=== PATIENT | female | born 1970 | race Asian ===

== ENCOUNTER 2017-07-07 12:47 | Emergency (ER) | payer OTHER ==
[2017-07-07 13:09] VITALS: BP 108/73
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
== END 2017-07-07 14:37 | disposition home or self-care (01) ==
LOC: UCEAST 12:47
DX: S16.1XXA Strain of muscle, fascia and tendon at neck level, initial encounter (principal); V43.52XA Car driver injured in collision with other type car in traffic accident, initial encounter; Y92.9 Unspecified place or not applicable; J45.909 Unspecified asthma, uncomplicated; M50.322 Other cervical disc degeneration at C5-C6 level
CPT/HCPCS: 72020; 72050; 99212; G0463

== ENCOUNTER 2019-06-05 11:44 | Emergency (ER) | payer OTHER ==
[2019-06-05 11:52] VITALS: BP 121/53
[2019-06-05] MEDS ORDERED: Albuterol/Ipratropium NEB.SOL* Albuterol 2.5 MG/Ipratropium 0.5 MG 3 ML INH ONE (12:03)
--- NOTE | 2019-06-05 12:03 | UC ---
Respiratory Complaint HPI - HPI Summary HPI Summary: 49 yo female presents with sinus pain/pressure/congestion, loss of voice, and dry cough for the last 4 days. She has a history of asthma and has been using her inhalers at home with mild short term relief. She has felt feverish, but has not taken her temperature. Has not been taking anything OTC for her symptoms. Denies sore throat, SOB, chest pain, n/v. - History of Current Complaint Chief Complaint: UCRespiratory Stated Complaint: RESP COMPLAINT Time Seen by Provider: 06/05/19 11:57 Hx Obtained From: Patient Hx Last Menstrual Period: 07/03/17 Onset/Duration: Gradual Onset Severity Initially: Moderate Severity Currently: Moderate Pain Intensity: 5 Pain Scale Used: 0-10 Numeric Character: Cough: Nonproductive - Allergies/Home Medications Allergies/Adverse Reactions: Allergies Allergy/AdvReac Type Severity Reaction Status Date / Time eggplant Allergy Swelling Uncoded 06/05/19 11:51 Of Face,Lips,& Throat PMH/Surg Hx/FS Hx/Imm Hx Respiratory History: Asthma - Surgical History Surgical History: None - Family History Known Family History: Positive: None - Social History Lives: With Family Alcohol Use: Rare Substance Use Type: None Smoking Status (MU): Never Smoked Tobacco Review of Systems All Other Systems Reviewed And Are Negative: Yes Constitutional: Positive: Fever - resolved Skin: Positive: Negative Eyes: Positive: Negative ENT: Positive: Nasal Discharge, Sinus Congestion, Sinus Pain/Tenderness Respiratory: Positive: Cough Cardiovascular: Positive: Negative Gastrointestinal: Positive: Negative Neurovascular: Positive: Negative Neurological: Positive: Negative Psychological: Positive: Negative Physical Exam - Summary Physical Exam Summary: GENERAL: NAD. WDWN. No pain distress. SKIN: No rashes, sores, lesions, or open wounds. HEENT: Head: AT/NC Eyes: EOM intact. Conjunctiva clear without inflammation or discharge. Ears: Hearing grossly normal. TMs intact, no bulging, erythema, or edema. Nose: Nasal mucosa mildly swollen and erythematous with clear discharge. TTP maxillary > frontal sinus. Positive post nasal drip Throat: Posterior oropharynx without exudates, erythema, or tonsillar enlargement. Uvula midline. NECK: Supple. Nontender. No lymphadenopathy. CHEST: CTAB. No r/r/w. No accessory muscle use. Breathing comfortably and in no distress. CV: RRR. Without m/r/g. Pulses intact. NEURO: Alert. PSYCH: Age appropriate behavior. Triage Information Reviewed: Yes Vital Signs: Initial Vital Signs Temp 98.6 F 06/05/19 11:49 Pulse 102 06/05/19 11:49 Resp 20 06/05/19 11:49 BP 121/53 06/05/19 11:49 Pulse Ox 99 06/05/19 11:49 Vital Signs Reviewed: Yes Respiratory Course/Dx - Course Course Of Treatment: CXR: IMPRESSION: NO EVIDENCE FOR ACTIVE CARDIOPULMONARY DISEASE. Duoneb: good improvement s/p with less coughing and lungs feel less tight. Suspect sinusitis with bronchitis/asthma exacerbation. Will rx for augmentin and tessalon. Advised to continue with at home inhalers and f/u if no improvement in 2-3 days - Differential Dx/Diagnosis Provider Diagnosis: Sinusitis, Asthma exacerbation Discharge - Sign-Out/Discharge Documenting (check all that apply): Patient Departure All imaging exams completed and their final reports reviewed: Yes - Discharge Plan Condition: Stable Disposition: HOME Prescriptions: Amoxicillin/Clavulanate TAB* [Augmentin TAB 875*] 875 mg PO BID #14 tab Benzonatate CAP* [Tessalon 100 MG CAP*] 100 mg PO TID PRN #15 cap PRN Reason: Cough Patient Education Materials: Asthma (DC), Sinusitis (ED) Referrals: Ana Johnson MD [Primary Care Provider] - Additional Instructions: If you develop a fever, shortness of breath, chest pain, new or worsening symptoms - please call your PCP or go to the ED immediately. Continue using your inhalers as directed - Billing Disposition and Condition Condition: STABLE Disposition: Home - Attestation Statements Provider Attestation: I was available for consult. This patient was seen by the CONNOR. The patient was not presented to, seen by, or examined by me. -Severiano
== END 2019-06-05 12:49 | disposition home or self-care (01) ==
LOC: UCEAST 11:44
DX: J32.9 Chronic sinusitis, unspecified (principal); J45.901 Unspecified asthma with (acute) exacerbation
CPT/HCPCS: 71046; 99211; A9270-GY; G0463

== ENCOUNTER 2019-11-02 13:35 | Emergency (ER) | payer OTHER ==
[2019-11-02 13:44] VITALS: BP 113/66
--- NOTE | 2019-11-02 14:01 | UC ---
Throat Pain/Nasal Evelio HPI - HPI Summary HPI Summary: 49 yo female presents with URI symptoms. Pt tells me that she has a history of asthma. Over the last 1-1.5 weeks has had sinus pain/pressure/congestion, post nasal drip, and worsening cough. She has been using her inhalers more often, which do help. Noticing pain in her upper teeth recently. Denies rash, SOB, chest pain, abdominal pain, n/v. - History of Current Complaint Chief Complaint: UCGeneralIllness Stated Complaint: CONGESTION, SORE THROAT Time Seen by Provider: 11/02/19 14:01 Hx Obtained From: Patient Hx Last Menstrual Period: 10/25 Onset/Duration: Gradual Onset Severity: Moderate Pain Intensity: 7 Pain Scale Used: 0-10 Numeric - Allergies/Home Medications Allergies/Adverse Reactions: Allergies Allergy/AdvReac Type Severity Reaction Status Date / Time eggplant Allergy Swelling Uncoded 11/02/19 13:44 Of Face,Lips,& Throat PMH/Surg Hx/FS Hx/Imm Hx Respiratory History: Asthma - Surgical History Surgical History: None - Family History Known Family History: Positive: None - Social History Lives: With Family Alcohol Use: Rare Substance Use Type: None Smoking Status (MU): Never Smoked Tobacco Review of Systems All Other Systems Reviewed And Are Negative: No Constitutional: Positive: Negative Skin: Positive: Negative Eyes: Positive: Negative ENT: Positive: Nasal Discharge, Sinus Congestion, Sinus Pain/Tenderness Respiratory: Positive: Cough Cardiovascular: Positive: Negative Gastrointestinal: Positive: Negative Neurovascular: Positive: Negative Neurological: Positive: Negative Psychological: Positive: Negative Physical Exam - Summary Physical Exam Summary: GENERAL: NAD. WDWN. No pain distress. SKIN: No rashes, sores, lesions, or open wounds. HEENT: Head: AT/NC Eyes: Conjunctiva clear without inflammation or discharge. Ears: Hearing grossly normal. TMs intact, no bulging, erythema, or edema. Nose: Nasal mucosa pink and moist. TTP maxillary > frontal sinus. Positive post nasal drip Throat: Posterior oropharynx without exudates, erythema, or tonsillar enlargement. Uvula midline. NECK: Supple. Nontender. No lymphadenopathy. CHEST: Mild wheezing throughout. No r/r. No accessory muscle use. Breathing comfortably and in no distress. CV: RRR. Pulses intact. Cap refill <2seconds NEURO: Alert. PSYCH: Age appropriate behavior. Triage Information Reviewed: Yes Vital Signs: Initial Vital Signs Temp 98 F 11/02/19 13:39 Pulse 94 11/02/19 13:39 Resp 16 11/02/19 13:39 BP 113/66 11/02/19 13:39 Pulse Ox 98 11/02/19 13:39 Vital Signs Reviewed: Yes Diagnostics - Radiology CXR Radiology Interpretation Completed By: Radiologist Summary of Radiographic Findings: IMPRESSION: LOW LUNG VOLUMES, NO EVIDENCE FOR ACUTE FINDING. Throat Pain/Nasal Course/Dx - Course Course Of Treatment: CXR as above. Pt is given a duoneb treatment in the clinic and had great relief of wheezing - easier to take a deep breath. Suspect URI/Asthma exacerbation/Sinusitis - Differential Dx/Diagnosis Provider Diagnosis: Sinusitis, Asthma exacerbation Discharge ED - Sign-Out/Discharge Documenting (check all that apply): Patient Departure All imaging exams completed and their final reports reviewed: Yes - Discharge Plan Condition: Stable Disposition: HOME Prescriptions: Amoxicillin PO (*) [Amoxicillin 875 MG (*)] 875 mg PO BID #14 tab Patient Education Materials: Asthma (ED), Sinusitis (ED) Referrals: Ana Johnson MD [Primary Care Provider] - Additional Instructions: If you develop a fever, shortness of breath, chest pain, new or worsening symptoms - please call your PCP or go to the ED immediately. - Billing Disposition and Condition Condition: STABLE Disposition: Home
[2019-11-02] MEDS ORDERED: Albuterol/Ipratropium NEB.SOL* Albuterol 2.5 MG/Ipratropium 0.5 MG 3 ML INH ONE (14:08)
== END 2019-11-02 14:50 | disposition home or self-care (01) ==
LOC: UCEAST 13:35
DX: J32.9 Chronic sinusitis, unspecified (principal); J45.901 Unspecified asthma with (acute) exacerbation; Z91.018 Allergy to other foods
CPT/HCPCS: 71046; 99212; A9270-GY; G0463